=== PATIENT | female | born 1965 | race Caucasian/White ===

== ENCOUNTER 2024-06-19 20:40 | Emergency (ER) | payer OTHER ==
[2024-06-19 21:06] LABS: BASOPHILS ABSOLUTE AUTO 0.03 K/uL (0.00-0.10); BASOPHILS PERCENT AUTO 0.3 % (0.1-1.3); EOSINOPHILS ABSOLUTE AUTO 0.09 K/uL (0.00-0.40); EOSINOPHILS PERCENT AUTO 0.9 % (0.0-5.4); HEMATOCRIT 36.1 % (34.3-46.0); IMMATURE GRAN ABSOLUTE AUTO 0.02 K/uL (0.00-0.23); IMMATURE GRAN PERCENT AUTO 0.2 % (0.0-0.7); LYMPHOCYTES ABSOLUTE AUTO 2.04 K/uL (0.8-3.3); LYMPHOCYTES PERCENT AUTO 20.5 % (11.4-47.7); MEAN CORPUSCULAR HEMOGLOBIN 29.7 pg (31.6-35.5); MEAN CORPUSCULAR HGB CONC 33.2 g/dL (31.6-35.5); MEAN CORPUSCULAR VOLUME 89.4 fL (81.4-99.0); MONOCYTES ABSOLUTE AUTO 0.83 K/uL (0.20-0.90); MONOCYTES PERCENT AUTO 8.3 % (3.3-12.6); NEUTROPHILS ABSOLUTE AUTO 6.96 K/uL (1.0-7.6); NEUTROPHILS PERCENT AUTO 69.8 % (40.0-78.1); PLATELET COUNT,PLT 229 K/uL (130-375); RED BLOOD CELL COUNT 4.04 M/uL (3.77-5.24)
[2024-06-19 21:22] LABS: A/G RATIO 0.9 (1.2-2.2); ALANINE AMINOTRANSFERASE,ALT 20 U/L (12-78); ALBUMIN 3.5 g/dL (3.4-5.0); ALKALINE PHOSPHATASE 69 U/L (46-116); ASPARTATE AMNIOTRANSFERASE,AST 12 U/L (15-37); BILIRUBIN TOTAL 0.4 mg/dL (0.2-1.0); BLOOD UREA NITROGEN,BUN 17 mg/dL (7-18); CALCIUM 9.7 mg/dL (8.5-10.1); CARBON DIOXIDE,CO2 24 mmol/L (21-32); CHLORIDE,CL 102 mmol/L (100-108); EST CRCL DRUG DOSING (CG) 51.66 mL/min; ESTIMATED GFR 64 mL/min (>60); GLUCOSE RANDOM 164 mg/dL (74-106); POTASSIUM,K 3.7 mmol/L (3.6-5.2); PROTEIN TOTAL,TP 7.4 g/dL (6.4-8.2); SODIUM,NA 139 mmol/L (140-148)
[2024-06-19 21:23] LABS: ANION GAP 16.7 mmol/L (5.0-14.0); TROPONIN I HIGH SENSITIVITY < 4.0 pg/mL (<=60.3)
[2024-06-19] MEDS ORDERED: Sodium Chloride 0.9% 10 ML Syringe FLUSH PRN (22:29)
[2024-06-19] MEDS ORDERED: Sodium Chloride 0.9% 1,000 ML IV SCH (22:30)
[2024-06-19] MEDS: Iopamidol 755 Mg/ML 100 ML Bottle IV SCH (22:57)
[2024-06-19] MEDS: Sodium Chloride 0.9% 10 ML Syringe FLUSH ONE (22:57)
[2024-06-19] MEDS: Sodium Chloride 0.9% 100 ML IV SCH (22:57)
== END 2024-06-20 01:04 | disposition home or self-care (01) ==
LOC: JP.ED 20:40
DX: J69.0 Pneumonitis due to inhalation of food and vomit (principal); I10 Essential (primary) hypertension; E11.9 Type 2 diabetes mellitus without complications; Z79.82 Long term (current) use of aspirin; Z79.84 Long term (current) use of oral hypoglycemic drugs; Z79.899 Other long term (current) drug therapy; Z79.4 Long term (current) use of insulin; Z88.0 Allergy status to penicillin
CPT/HCPCS: 36415; 71046; 71275; 80053; 84484; 85025; 85379; 99285; J3490; Q9967